=== PATIENT | male | born 1960 | race Two or more races ===

== ENCOUNTER 2023-09-09 16:15 | Emergency (ER) | payer SELFPAY ==
[~2023-09-09] VITALS: Ht 177.8 cm; Wt 83.0 kg
[2023-09-09 16:18] VITALS: BP 126/64; PULSE 77; RESP 19; TEMP 98; O2SAT 99
== END 2023-09-09 17:50 | disposition left against medical advice (07) ==
LOC: ER 17:42
DX: R68.89 Other general symptoms and signs (principal); Z53.21 Procedure and treatment not carried out due to patient leaving prior to being seen by health care provider
CPT/HCPCS: 99281